=== PATIENT | female | born 1995 | race Caucasian/White ===

== ENCOUNTER 2024-09-13 12:46 | Inpatient (IN) | payer BC, MEDICAID ==
[~2024-09-13] VITALS: Ht 175.3 cm; Wt 95.0 kg
--- NOTE | 2024-09-13 13:18 | ED.PDOC ---
History of Present Illness HPI Comments This pleasant 28-year-old female presents secondary to neck and right shoulder pain. She also complains of friction victoria to bilateral hands. Patient was riding her horse when a deer struck the flank of her horse. The horse turned quickly to look at what struck it throwing the patient onto the ground. The patient has no other complaints at the time other than of vague headache, neck pain, right shoulder, right hip and bilateral hand pain. She denies numbness tingling to her extremities. Denies weakness to her extremities. Denies incontinence retention feces or urine. Patient has continued with the ambulate. Fourteen systems reviewed and negative except as mentioned above Chief Complaint: Fall Injury Time Seen by MD: 12:59 Primary Care Provider: DR. CARTAGENA Allergies: Coded Allergies: Azithromycin (Verified Allergy, Unknown, 09/13/24) Ciprofloxacin (Verified Allergy, Unknown, 09/13/24) Mode of Arrival: Wheelchair Past Medical History PAST MEDICAL HISTORY: Denies Surgical History: Denies all surgeries ACTUARIAL INTERNSHIP History: No Pertinent ACTUARIAL INTERNSHIP History Family History Family History: Unknown Social History Smoker: Non-Smoker Alcohol: Denies ETOH Use Drugs: Denies Drug Use Lives In: Home Constitutional: denies: chills, diaphoresis, fatigue, fever, malaise, sweats, weakness, others EENTM: denies: blurred vision, double vision, ear bleeding, ear discharge, ear drainage, ear pain, ear ringing, eye pain, eye redness, hearing loss, mouth pain, mouth swelling, nasal discharge, nose bleeding, nose congestion, nose pain, photophobia, tearing, throat pain, throat swelling, voice changes, others Respiratory: denies: cough, hemoptysis, orthopnea, SOB at rest, shortness of breath, SOB with excertion, stridor, wheezing, others Cardiovascular: reports: others (Right shoulder pain without loss of range of motion); denies: chest pain, dizzy spells, diaphoresis, Dyspnea on exertion, edema, irregular heart beat, lightheadedness, palpitations, PND, syncope Gastrointestinal: denies: abdomen distended, abdominal pain, blood streaked bowels, constipated, diarrhea, dysphagia, difficulty swallowing, hematemesis, melena, nausea, poor appetite, poor fluid intake, rectal bleeding, rectal pain, vomiting, others Genitourinary: denies: abnormal vagina bleeding, burning, dyspareunia, dysuria, flank pain, frequency, hematuria, incontinence, pain, , vagina discharge, urgency, others Neurological: denies: dizziness, fainting, headache, left sided numbness, left sided weakness, numbness, paresthesia, pre-existing deficit, right sided numbness, right sided weakness, seizure, speech problems, tingling, tremors, weakness, others Musculoskeletal: reports: muscle pain, muscle stiffness, neck pain; denies: back pain, gout, joint pain, joint swelling, others Integumetry: reports: lesions, wounds Allergic/Immunocompromised: denies: Difficulty Healing, Frequent Infections, Hives, Itching, others Hematologic/Lymphatic: denies: anemia, blood clots, easy bleeding, easy bruising, swollen glands, others Endocrine: denies: excessive hunger, excessive sweating, excessive thirst, excessive urination, flushing, intolerance to cold, intolerance to heat, unexplained weight gain, unexplained weight loss, others Psychiatric: denies: anxiety, bipolar disorder, depression, hopeless, panic disorder, schizophrenia, sleepless, suicidal, others Physical Exam General Appearance: Mild Distress HEENT: Head (Atraumatic normocephalic), PERRL/EOMI, Pharynx Normal, TMs Normal Neck: Other (Pain with axial loading. Tenderness to palpation at C6 C7/T1. Tenderness to palpation to the left cervical paraspinal muscles.) Respiratory: Chest Non-Tender, Lungs Clear, No Accessory Muscle Use, No Respiratory Distress, Normal Breath Sounds Cardiovascular: No Edema, No Murmur, No Gallop, Normal Peripheral Pulses, Regular Rate/Rhythm Breast Exam: Deferred Gastrointestinal: No Organomegaly, Non Tender, No Pulsatile Mass, Normal Bowel Sounds, Soft Genitalia: Deferred Pelvic: Other (no pain with axial loading) Rectal: Deferred Extremities: No calf tenderness, Normal capillary refill, Normal inspection, Normal range of motion, Non-tender, No pedal edema Neurologic: Alert, cloth shrinker II-XII nml as Tested, No Motor Deficits, Normal Affect, Normal Mood, No Sensory Deficits Cerebellar Function: NOT DONE Reflexes: NOT DONE Skin: Dry, Normal Color, Warm Lymphatic: No Adenopathy Was a procedure done? Was a procedure done?: No Differential Dx Considerations may include: Subarachnoid bleed, subdural bleed, tendinous injury of the cervical spine, fr acture of the cervical spine, spasm muscle right shoulder sprain, right shoulder fracture, right shoulder dislocation, right shoulder contusion, right hip fracture, right hip contusion X-Ray, Labs, Meds, VS Vital Signs Date Time Temp Pulse Resp B/P (MAP) Pulse Ox O2 Delivery O2 Flow Rate FiO2 09/13/24 14:00 91 18 131/73 (92) 97 09/13/24 13:52 97 Room Air* 0 21 09/13/24 13:36 93 16 97 Room Air* 0 21 09/13/24 13:35 97.8 93 18 122/77 (92) 97 97.8 09/13/24 12:52 98.2 97 16 130/84 (99) 100 98.2 Lab Test 09/13/24 14:15 Range/Units Urine Test Negative Negative X-Ray, Labs, Meds, VS Comment This 28-year-old female was thrown off a horse and now presents with cervical spine tenderness palpation. CT scan was read negative. However, the patient continues to have midline tenderness to palpation. Concerned the patient may have a ligamentous injury. The patient continues to complain of severe pain. She will be admitted for further workup management of her pain. MRI of the cervical spine was ordered. Time of 1ST Reevaluation: 16:01 Reevaluation 1ST: Unchanged Patient Education/Counseling: Diagnosis, Treatment Family Education/Counseling: Diagnosis, Treatment SEPSIS Sepsis Screen Date sepsis recognized/suspect: Sep 13, 2024 Time Sepsis recognized/suspect: 1252 Recent Procedure: No On Antibiotic Therapy: No Respiratory Rate >20: No Heart Rate >90: Yes Temp<36 C (96.8 F) or >38.3 C: No SBP <90 or MAP <65 mmHG: No New Acute Mental Status Change: No Is the patient on CPAP, BIPAP,: No Physician Orders Head Without Contrast (09/13/24 12:59) Cervical Without Contrast (09/13/24 12:59) R Hip Complete Xray (09/13/24 13:18) L Shoulder 2+ View Xray (09/13/24 13:11) Cervical Wo Contrast (09/13/24 15:59) Vital Signs Date Time Temp Pulse Resp B/P (MAP) Pulse Ox O2 Delivery O2 Flow Rate FiO2 09/13/24 14:00 91 18 131/73 (92) 97 09/13/24 13:52 97 Room Air* 0 21 09/13/24 13:36 93 16 97 Room Air* 0 21 09/13/24 13:35 97.8 93 18 122/77 (92) 97 97.8 09/13/24 12:52 98.2 97 16 130/84 (99) 100 98.2 Departure 1 Departure Time of Disposition: 16:02 Impression: Primary Impression: Contusion of right shoulder Additional Impressions: Right shoulder pain Cervical spinal cord injury Contusion of right hip Burn of hand including fingers Disposition: ADMITTED INPATIENT Condition: Serious Critical Care Note Critical Care Time?: Yes (30 min-critical care time only) Stability Stability form required: No Heart Score Heart Score: Heart Score Response (Comments) Value History N/A 0 EKG N/A 0 Age N/A 0 Risk Factors N/A 0 Troponin N/A 0 Total 0 RICH GIPSON MD Sep 13, 2024 13:17
[2024-09-13 13:36] VITALS: PULSE 93; RESP 16; O2SAT 97
--- NOTE | 2024-09-13 15:10 | DVH ---
X-ray right hip Technique: AP and frog-leg views REASON FOR EXAM: right hip pain INDICATION: right hip pain FINDINGS: No fractures or dislocations. No erosions or periosteal reaction. Articular surfaces are sm ooth. IMPRESSION: 1. No acute bony pathology
--- NOTE | 2024-09-13 15:11 | DVH ---
X-ray left shoulder Technique: AP internal and external rotation views and transscapular views REASON FOR EXAM: left shoulder pain Comparison: None FINDINGS: No fractures or dislocations. No erosions or periosteal reaction. Articular surfaces are sm ooth. IMPRESSION: 1. No acute bony pathology
--- NOTE | 2024-09-13 15:16 | DVH ---
CT cervical spine INDICATION: neck pain after falling off horse Technique: Serial axial images were performed through spine and then reformatted in sagital and ussie nal planes. FINDINGS: Cervical vertebrae normal in height and alignment No disc space narrowing. Odontoid process intact. Normal alignment of C1-C2. On transaxial images no narrowing of the central canal and neural foramina No fractures or malalignment of the posterior arches. IMPRESSION: 1. No acute bony fracture or dislocation of the cervical spine Computed Tomographic Radiation Dosimetry Report: Total CTDI vol = 18 mGy Total DLP = 41 mGy-cm All CT scans at this medical facility are performed using dose modulation techniques as appropriate t o a performed exam including the following: Automated exposure control was utilized; adjustment of the MA and/or KvP according to patient size; a nd use of iterative reconstruction technique.
--- NOTE | 2024-09-13 15:35 | DVH ---
EXAM: CT HEAD WITHOUT CONTRAST INDICATION: aloc after falling off horse TECHNIQUE: CT of the head without intravenous contrast. Coronal and sagittal reformatted images are s ubmitted. Radiation Dose : 1. Head: CT Dose: CTDI volume is 52.3 mGy. Dose-length product is 863.9 mGy*cm The dose indicators for CT are the volume Computed Tomography (CT) Dose Index (CTDIvol) and the Dose Length Product (DLP), and are measured in units of mGy and mGy-cm, respectively. These indicators are not patient dose, but values generated from the CT scanner acquisition factors. The report includes radiation exposure data for exposures received during this examination. All CT scans at this medical facility are performed using dose modulation techniques as appropriate to a performed exam including the following: Automated exposure control was utilized; adjustment of the MA and/or KV according to patient size; and use of iterative reconstruction technique. COMPARISON: None FINDINGS: There is no evidence of acute intracranial hemorrhage, extra-axial collection, mass effect, midline s hift, herniation or hydrocephalus. The ventricles, sulci and cisterns are age appropriate. The rodriguez-white differentiation is intact. The visualized paranasal sinuses and mastoid air cells are clear. No depressed calvarial fracture. The surrounding soft tissues are unremarkable. IMPRESSION: 1. No evidence of acute intracranial abnormality.
--- NOTE | 2024-09-13 17:21 | DVH ---
XY RIBS BILATERAL, HISTORY: r/o rib fxs COMPARISON: None None TECHNICAL DATA: 1 view of the chest was obtained. 8 views of the bilateral ribs. FINDINGS: Lines and tubes: None Cardiomediastinal silhouette: normal Pulmonary vasculature: normal Lung expansion: normal Lung airspace: normal Lung interstitium: normal Pleura: normal Pneumothorax: no Bones: Unremarkable Other: no IMPRESSION: No acute intrathoracic abnormality. No acute rib fracture seen.
[2024-09-13 17:45] LABS: Alanine Aminotransferase 16 U/L (7-40); Albumin 3.7 g/dL (3.2-4.8); Alkaline Phosphatase 73 U/L (46-116); Anion Gap 10 (5-15); BUN/Creatinine Ratio 16.9 (10.0-20.0); Bilirubin, Total 0.4 mg/dL (0.2-1.0); Blood Urea Nitrogen 10 mg/dL (9-23); Potassium 3.6 mmol/L (3.5-5.1); Sodium 142 mmol/L (136-145)
[2024-09-13] MEDS: BACITRACIN TOP OINT 1 UD PKG TOP ONE (17:45)
[2024-09-13 17:54] LABS: Hematocrit 39.1 % (36.0-46.0); Hemoglobin 13.1 g/dL (12.2-16.2); Mean Corpuscular Hemoglobin 30.6 pg (28.0-32.0); Mean Corpuscular Volume 91.7 fL (80.0-100.0); Nucleated Red Blood Cells % 0.0 %
[2024-09-13 18:04] LABS: Calcium 7.7 mg/dL (8.7-10.4); Carbon Dioxide 17 mmol/L (20-31); Chloride 115 mmol/L (98-107); Glucose 68 mg/dL (74-106); Total Protein 5.4 g/dL (5.7-8.2)
[2024-09-13] MEDS: HYDROcodone-ACET 5/325MG TAB PO ONE (19:24)
[2024-09-13 23:23] VITALS: BP 118/81; PULSE 86; RESP 20; TEMP 98.6; O2SAT 100
[2024-09-13 23:38] VITALS: BP 118/81; PULSE 86; RESP 20; TEMP 98.6; O2SAT 100
[2024-09-14 00:58] VITALS: BP 111/75; PULSE 77; RESP 18; TEMP 98; O2SAT 98
[2024-09-14] MEDS: HYDROcodone-ACET 5/325MG TAB PO PRN (02:02)
[2024-09-14 04:47] VITALS: BP 109/70; PULSE 74; RESP 17; TEMP 98.1; O2SAT 96
[2024-09-14] MEDS: D5W/SOD CHL 0.45% 1,000 ML IV SCH (06:36)
--- NOTE | 2024-09-14 09:29 | DVH ---
MRI CERVICAL WO CONTRAST INDICATION: C spine ttp after falling off horse EXAM DATE: 09/14/2024 08:36 AM COMPARISON: CT CERVICAL WITHOUT CONTRAST on DOS: 09/13/24 PROCEDURE: Using a 1.5 Cat scanner, multisequence multiplanar imaging of the cervical spine was obt ained. FINDINGS: Alignment at the craniocervical junction is maintained. The cervical spine shows anatomic a lignment with preservation of vertebral body heights. The marrow signal is homogeneous. The intervert ebral discs appear normal in height and signal. The cervical cord is normal in signal and caliber. Th e paravertebral soft tissues are normal in appearance. On axial images: the posterior disc margin, thecal sac, neural foramina, and facet joints appear norm al. IMPRESSION: No acute abnormal MRI findings of the cervical spine.
--- NOTE | 2024-09-14 12:00 | DVHPN2 ---
Progress Note Objective vital signs Vital Sign Date Time Temp Pulse Resp B/P (MAP) Pulse Ox O2 Delivery O2 Flow Rate FiO2 09/14/24 08:00 Room Air* 0 21 09/14/24 04:47 98.1 74 17 109/70 (83) 96 98.1 Total Intake and Output 09/13/24 09/13/24 09/14/24 15:00 23:00 07:00 Intake Total 200 ml Balance 200 ml medications Current Medications Medications Dose Ordered Sig/Troy Route Start Time Stop Time Status Last Admin Dose Admin Acetaminophen/ Hydrocodone Bitart 1 tab Q6HPRN PRN PO 09/14/24 01:30 09/14/24 02:02 1 TAB Dextrose/Sodium Chloride 1,000 ml @ 75 mls/hr [id number] IV 09/14/24 06:00 09/14/24 06:36 75 MLS/HR laboratory and microbiology Laboratory Tests 09/13/24 17:20 Test 09/13/24 17:20 Range/Units Serum Glucose 68 L 74-106 mg/dL JOHN THURSTON [facility] Sep 14, 2024 12:00
--- NOTE | 2024-09-14 12:34 | DVHHP2 ---
History of Present Illness History of Present Illness 28-year-old female presents to emergency room for neck right shoulder pain and right hip pain S/P fall from riding her horse. Patient denies any fever chills or chest pain Review of Systems Constitutional: No: Fever, Chills, Sweats, Weakness, Malaise, Other Respiratory: No: Cough, Dry, Shortness of breath, SOB with excertion, Wheezing, Hemoptysis, Pleuritic Pain, Sputum, Wheezing, Other Cardiovascular: No: Chest Pain, Palpitations, Orthopnea, Paroxysmal Noc. Dyspnea, Edema, Lt Headedness, Other Gastrointestinal: No: Nausea, Vomiting, Abdominal Pain, Diarrhea, Constipation, Melena, Hematochezia, Other Genitourinary: No Dysuria, No Frequency, No Incontinence, No Hematuria, No Retention, No Other Allergies: Coded Allergies: Azithromycin (Verified Allergy, Unknown, 09/13/24) Ciprofloxacin (Verified Allergy, Unknown, 09/13/24) Medications Current Medications Medications Dose Ordered Sig/Troy Route Start Time Stop Time Status Last Admin Dose Admin Acetaminophen/ Hydrocodone Bitart 1 tab Q6HPRN PRN PO 09/14/24 01:30 09/14/24 12:14 1 TAB Dextrose/Sodium Chloride 1,000 ml @ 75 mls/hr [id number] IV 09/14/24 06:00 09/14/24 06:36 75 MLS/HR Exam Vital Signs Vital Signs Date Time Temp Pulse Resp B/P (MAP) Pulse Ox O2 Delivery O2 Flow Rate FiO2 09/14/24 08:00 Room Air* 0 21 09/14/24 04:47 98.1 74 17 109/70 (83) 96 98.1 General Appearance: Alert, Oriented X3 Respiratory: Clear to auscultation, Normal air movement Cardiovascular: Regular rate, Normal S1, Normal S2 Abdominal: Normal bowel sounds, Soft, No tenderness Extremities: No clubbing, No cyanosis Skin: No rashes Labs/Xrays Labs Test 09/13/24 18:41 09/13/24 17:20 09/13/24 14:15 Range/Units POC Glucose 75 70-106 mg/dl White Blood Count 19.1 H 4.4-10.8 10^3/uL Red Blood Count 4.27 4.0-5.20 10^6/uL Hemoglobin 13.1 12.2-16.2 g/dL Hematocrit 39.1 36.0-46.0 % Mean Corpuscular Volume 91.7 80.0-100.0 fL Mean Corpuscular Hemoglobin 30.6 28.0-32.0 pg Mean Corpuscular Hemoglobin Concent 33.4 32.0-36.0 g/dL Red Cell Distribution Width 12.5 11.8-14.3 % Platelet Count 244 140-450 10^3/uL Mean Platelet Volume 7.4 6.9-10.8 fL Neutrophils (%) (Auto) 73.4 37.0-80.0 % Lymphocytes (%) (Auto) 22.0 10.0-50.0 % Monocytes (%) (Auto) 4.3 0.0-12.0 % Eosinophils (%) (Auto) 0.1 0.0-7.0 % Basophils (%) (Auto) 0.2 0.0-2.0 % Neutrophils # (Auto) 14.0 H 1.6-8.6 10 ^3/uL Lymphocytes # (Auto) 4.2 0.4-5.4 10 ^3/uL Monocytes # (Auto) 0.8 0-1.3 10 ^3/uL Eosinophils # (Auto) 0 0-0.8 10 ^3/uL Basophils # (Auto) 0 0-0.2 10 ^3/uL Nucleated Red Blood Cells 0.0 % Sodium Level 142 136-145 mmol/L Potassium Level 3.6 3.5-5.1 mmol/L Chloride Level 115 H 98-107 mmol/L Carbon Dioxide Level 17 L 20-31 mmol/L Anion Gap 10 5-15 Blood Urea Nitrogen 10 9-23 mg/dL Creatinine 0.59 0.550-1.02 mg/dL Glomerular Filtration Rate Calc 126 >90 mL/min BUN/Creatinine Ratio 16.9 10.0-20.0 Serum Glucose 68 L 74-106 mg/dL Calcium Level 7.7 L 8.7-10.4 mg/dL Total Bilirubin 0.4 0.2-1.0 mg/dL Aspartate Amino Transferase (AST) 24 13-40 U/L Alanine Aminotransferase (ALT) 16 7-40 U/L Alkaline Phosphatase 73 46-116 U/L Total Protein 5.4 L 5.7-8.2 g/dL Albumin 3.7 3.2-4.8 g/dL Urine Test Negative Negative SEPSIS Sepsis Screen Date sepsis recognized/suspect: Sep 13, 2024 Time Sepsis recognized/suspect: 1349 Recent Procedure: No On Antibiotic Therapy: No Respiratory Rate >20: No Heart Rate >90: No Temp<36 C (96.8 F) or >38.3 C: No SBP <90 or MAP <65 mmHG: No New Acute Mental Status Change: No Is the patient on CPAP, BIPAP,: No Physician Orders D5w/Sod Chl 0.45% (D5w 1/2ns) (09/14/24 06:00) Regular Diet (09/14/24 Lunch) Vital Signs Date Time Temp Pulse Resp B/P (MAP) Pulse Ox O2 Delivery O2 Flow Rate FiO2 09/14/24 08:00 Room Air* 0 21 09/14/24 04:47 98.1 74 17 109/70 (83) 96 98.1 Medications Medications Dose Ordered Sig/Troy Route Start Time Stop Time Status Last Admin Dose Admin Acetaminophen/ Hydrocodone Bitart 1 tab Q6HPRN PRN PO 09/14/24 01:30 09/14/24 12:14 1 TAB Dextrose/Sodium Chloride 1,000 ml @ 75 mls/hr [id number] IV 09/14/24 06:00 09/14/24 06:36 75 MLS/HR Assessment/Plan Assessment/Plan Contusion of right shoulder fall injury Right shoulder pain Contusion of right hip Burn of hand including fingers Plan discussed with: Patient My Orders Orders - JOHN THURSTON Procedure Category Date Status Time Regular Diet DIET 09/14/24 Transmitted Lunch Date of Service: Sep 13, 2024 Billing Provider: DARON UQIJANO MD Common Visit Codes: [id number] INP/OBS CARE (MOD) JOHN THURSTON Sep 14, 2024 12:34
[2024-09-14] MEDS ORDERED: NALO4SPR2 (12:38)
[2024-09-14] MEDS ORDERED: HYDR-4902 PO (12:38)
--- NOTE | 2024-09-14 12:39 | DVHDS2 ---
Discharge Summary Date of Admission Sep 13, 2024 at 16:56 Date of Discharge: Sep 14, 2024 Admitting Diagnosis For injury Labs/Diagnostic Data: Laboratory Results Test 09/13/24 18:41 09/13/24 17:20 09/13/24 14:15 POC Glucose 75 mg/dl (70-106) White Blood Count 19.1 10^3/uL (4.4-10.8) Red Blood Count 4.27 10^6/uL (4.0-5.20) Hemoglobin 13.1 g/dL (12.2-16.2) Hematocrit 39.1 % (36.0-46.0) Mean Corpuscular Volume 91.7 fL (80.0-100.0) Mean Corpuscular Hemoglobin 30.6 pg (28.0-32.0) Mean Corpuscular Hemoglobin Concent 33.4 g/dL (32.0-36.0) Red Cell Distribution Width 12.5 % (11.8-14.3) Platelet Count 244 10^3/uL (140-450) Mean Platelet Volume 7.4 fL (6.9-10.8) Neutrophils (%) (Auto) 73.4 % (37.0-80.0) Lymphocytes (%) (Auto) 22.0 % (10.0-50.0) Monocytes (%) (Auto) 4.3 % (0.0-12.0) Eosinophils (%) (Auto) 0.1 % (0.0-7.0) Basophils (%) (Auto) 0.2 % (0.0-2.0) Neutrophils # (Auto) 14.0 10 ^3/uL (1.6-8.6) Lymphocytes # (Auto) 4.2 10 ^3/uL (0.4-5.4) Monocytes # (Auto) 0.8 10 ^3/uL (0-1.3) Eosinophils # (Auto) 0 10 ^3/uL (0-0.8) Basophils # (Auto) 0 10 ^3/uL (0-0.2) Nucleated Red Blood Cells 0.0 % Sodium Level 142 mmol/L (136-145) Potassium Level 3.6 mmol/L (3.5-5.1) Chloride Level 115 mmol/L (98-107) Carbon Dioxide Level 17 mmol/L (20-31) Anion Gap 10 (5-15) Blood Urea Nitrogen 10 mg/dL (9-23) Creatinine 0.59 mg/dL (0.550-1.02) Glomerular Filtration Rate Calc 126 mL/min (>90) BUN/Creatinine Ratio 16.9 (10.0-20.0) Serum Glucose 68 mg/dL (74-106) Calcium Level 7.7 mg/dL (8.7-10.4) Total Bilirubin 0.4 mg/dL (0.2-1.0) Aspartate Amino Transferase (AST) 24 U/L (13-40) Alanine Aminotransferase (ALT) 16 U/L (7-40) Alkaline Phosphatase 73 U/L (46-116) Total Protein 5.4 g/dL (5.7-8.2) Albumin 3.7 g/dL (3.2-4.8) Urine Test Negative (Negative) Other Laboratory Tests 09/13/24 17:20 Brief Hx & Hospital Course: Patient was admitted for fall off of a horse. Patient was complaining of neck pain rib pain right hip pain and left shoulder pain. Patient underwent cervical spine MRI and CT which were both negative patient rib x-ray was negative patient has right hip x-ray was negative and right shoulder x-ray were negative. Patient was sent home on [place] 06/28/2024 for generalized pains. Patient was advised to follow up with PCP within one week of discharge Condition at Discharge: Fair Final Diagnosis/Problems List Contusion of right shoulder fall injury Right shoulder pain Contusion of right hip Burn of hand including fingers Discharge Disposition: Home Discharge Instruct/Medications Diet: Cardiac 2g Na,low cholest Activity: No Restrictions, As Tolerated Follow Up/Referral: PCP within one week Scheduled PRN Hydrocodone-Acetaminophen (Hydrocodone Bitartrate/AC 5-325 mg), 1 TAB PO Q4HPRN PRN Naloxone HCl (Narcan), 4 MG NA ONCE PRN Discharge Statement: "Patient was advised to return to the ER or call 911 if any headaches, dizziness, shortness of breath, chest pain, abdominal pain, bleeding, fevers, or worsening of medical condition. Patient was counseled about treatment plan, medications, possible side effects, patientverbalized understanding. All questions were answered to the best of my ability. This discharge took greater then 30 minutes in planning, reviewing documentation, counseling the patient, and discussing with other team members." ASSESSMENT ASSESSMENT Assessment Contusion of right shoulder fall injury Right shoulder pain Contusion of right hip Burn of hand including fingers JOHN THURSTON [facility] Sep 14, 2024 12:39
[2024-09-14 13:00] VITALS: BP 107/77; PULSE 83; RESP 18; TEMP 98.7; O2SAT 99
== END 2024-09-14 14:27 | disposition home or self-care (01) | DRG 605 ==
LOC: ER 12:46 → OVERFLOW 16:56 → WEST WING 22:53
PROVIDERS: ADMIT General Practice; ATTEND General Practice
DX: S40.011A Contusion of right shoulder, initial encounter (principal); T23.041A Burn of unspecified degree of multiple right fingers (nail), including thumb, initial encounter; S70.01XA Contusion of right hip, initial encounter; S14.159A Other incomplete lesion at unspecified level of cervical spinal cord, initial encounter; Z88.1 Allergy status to other antibiotic agents; Z79.899 Other long term (current) drug therapy; V80.010A Animal-rider injured by fall from or being thrown from horse in noncollision accident, initial encounter; Y93.89 Activity, other specified; Y92.89 Other specified places as the place of occurrence of the external cause; Y99.8 Other external cause status
CPT/HCPCS: 36415; 70450; 71111; 72125; 72141; 73030; 73502; 80053; 81025; 82962; 85025; 96365; 99291; G0378